=== PATIENT | female | born 1995 ===

== ENCOUNTER 2025-03-06 16:00 | Emergency (ER) | payer OTHER, SELFPAY ==
[2025-03-06 16:30] VITALS: BP 125/67; PULSE 84; RESP 20; TEMP 36.6; O2SAT 98; BMI 21.4
--- NOTE | 2025-03-06 16:37 | DI.MRI.S_ITS ---
PROCEDURE: MR PELVIS WO CON INDICATIONS: RLQ mass/+preg, concern ectopic, ? US at [facility] TECHNIQUE: Noncontrast coronal, axial, and sagittal HASTE, axial HASTE with fat saturation, axial 2-D FLASH in- and [id number], axial 2-D time of flight, axial diffusion and ADC from the kidneys to the symphysis. COMPARISON: [facility], US, US OB <= 14 WEEKS FETUS, 03/06/2025, 16:55. FINDINGS: Image quality: Excellent. Bowel: Visualized small and large bowel loops are normal in caliber. The appendix is seen originating from the cecum and measures 0.5 cm in diameter, (13/5). Genitourinary system: Kidneys are normal in size. Bladder wall thickness is normal. Uterus and ovaries: Anteverted uterus. Endometrial contents measure 13 mm in diameter. No pole is identified. Cervix is unremarkable. Small volume of free fluid in the pelvis. Right ovarian cyst measuring 1.7 cm, (12/15). Thickened cyst wall. Asymmetric dilated tubular structure at the left adnexa measuring 1.3 cm in diameter, (13/6). Soft tissues: No ventral or inguinal hernias. Bones: Marrow has normal overall signal. IMPRESSION: 1. Right adnexa dilated tubular structure measuring 1.3 cm in diameter. This is most consistent with hydrosalpinx. Difficult to exclude tubal ectopic . 2. Right ovarian cyst with a thickened wall measuring 1.7 cm. Differential diagnosis includes corpus luteum, ectopic , heterotopic . 3. of uncertain location. Small volume of free fluid in the pelvis. 4. The appendix appears normal. Recommend gynecological consultation. Recommend trending beta hCG. Short-term follow-up pelvic ultrasound would be helpful. Comment: Findings were discussed with Sanam Velazquez at time of dictation. Dictated by: Familia Beltrán M.D. on 03/06/2025 at 18:54 Approved by: Familia Beltrán M.D. on 03/06/2025 at 19:17
--- NOTE | 2025-03-06 16:37 | DI.US.S_ITS ---
PROCEDURE: US OB <= 14 WEEKS FETUS INDICATIONS: r/o ectopc, ?US [facility] +mass R/+preg hcg 120 OUTSIDE/PRIOR DATING DATA: Last menstrual period (LMP): 01/28/2025 LMP-based estimated date of delivery (ELLY): 11/04/2025 TECHNIQUE: Real-time scanning was performed of the fetus and maternal pelvic organs, with image documentation. Endovaginal scanning was also performed to better visualize the fetus and maternal ovaries. COMPARISON: [facility], MR, MR PELVIS WO CON, 03/06/2025, 17:49. FINDINGS: No intrauterine fluid collection or gestational sac. A tubular structure is seen in the right adnexa measuring up to 12 mm in diameter, possibly bowel. Ovaries are normal in size and symmetric. Small amount of free fluid in the pelvic cul-de-sac. IMPRESSION: 1. of unknown location. No definite intrauterine or ectopic is seen. Differential includes normal early , ectopic , or and early loss. 2. Tubular bowel structure in the right adnexa, possibly a prominent loop of small bowel though a dilated appendix is not excluded. Approved by: Carlos Alberto Sage M.D. on 03/06/2025 at 18:48
--- NOTE | 2025-03-06 16:40 | ED.PREGNANCY ---
HPI - <Sanam Velazquez DO - Last Filed: 03/07/25 08:47> General Chief complaint: OB/Uterine Contractions Stated complaint: sent from [facility] in [place]- needs OBGYN Time Seen by Provider: 03/06/25 16:11 Source: patient Mode of arrival: Ambulatory Limitations: no limitations History of Present Illness HPI Narrative: 29-year-old female , patient's last menstrual period was 01/29/2020, developed some right lower quadrant discomfort today. Had evaluation at [facility] was found to have an hCG of 120 she notes positive test on Tuesday. Patient states had ultrasound today was sent from [facility] because of concern for ectopic versus other no intra uterine was seen but there was an abnormal hypervascular tubular structure in the right adnexa ultrasound was read as ectopic versus abnormal appendix versus inflamed bowel loop. Patient notes some spotting after her ultrasound. She states pain is improved after Tylenol. No fevers. No chest pain or shortness of breath, no nausea or vomiting no other GI or urinary symptoms other than some mild constipation. Patient states no prior surgeries. No daily medications. No known drug allergies. No tobacco, no regular alcohol, no recreational drugs. She lives in [place]. Related Data Allergies Allergy/AdvReac Type Severity Reaction Status Date / Time No Known Allergies Allergy Mild Verified 03/06/25 16:31 Review of Systems <Sanam Velazquez - Last Filed: 03/07/25 08:47> Review of Systems ROS Unobtainable: All systems reviewed & are unremarkable except as noted in HPI and below Exam <Sanam Velazquez - Last Filed: 03/07/25 08:47> Narrative Exam Narrative: GENERAL: Alert and oriented x three, female in mild distress HEENT: Head normocephalic, atraumatic, EOMI, pupils reactive, face symmetric, moist mucous membranes NECK: Supple, full range of motion CARDIOVASCULAR: Regular rate and rhythm without murmurs, rubs or gallops. RESPIRATORY: Breath sounds equal bilaterally, no wheezes rales or rhonchi. ABDOMEN: Soft, mild right lower quadrant tenderness. Normoactive bowel sounds all 4 quadrants. No guarding or rebound, rigidity, no mass : No CVA tenderness EXTREMITIES: Normal range of motion, no clubbing or edema. Neurovascularly intact NEUROLOGICAL: Cranial nerves II through XII grossly intact. Moving all extremities SKIN: Warm, dry, no petechiae, no rashes or lesions. Initial Vital Signs Initial Vital Signs: Vital Signs Temperature 98 F 03/06/25 16:30 Pulse Rate 84 03/06/25 16:30 Respiratory Rate 20 03/06/25 16:30 Blood Pressure 125/67 03/06/25 16:30 Pulse Oximetry 98 03/06/25 16:30 Oxygen Delivery Method Room Air 03/06/25 16:30 <Jadon Thomas MD - Last Filed: 03/07/25 05:28> Initial Vital Signs Initial Vital Signs: Vital Signs Temperature 98 F 03/06/25 16:30 Pulse Rate 84 03/06/25 16:30 Respiratory Rate 20 03/06/25 16:30 Blood Pressure 125/67 03/06/25 16:30 Pulse Oximetry 98 03/06/25 16:30 Oxygen Delivery Method Room Air 03/06/25 16:30 Course <Sanam Velazquez DO - Last Filed: 03/07/25 08:47> Orders Ordered: Discontinued Medications Sodium Chloride (Normal Saline 0.9%) 1,000 mls @ 250 mls/hr IV CONT SHERYL Last Infusion: 03/06/25 20:01 Dose: Infused Documented By: Admin: 03/06/25 17:33 Dose: 250 mls/hr Documented By: MPO Vital Signs Vital signs: Vital Signs - 8 hr 03/06/25 16:30 Temperature 98 F Pulse Rate 84 Respiratory Rate 20 Blood Pressure 125/67 Pulse Oximetry 98 Oxygen Delivery Method Room Air <Jadon Thomas MD - Last Filed: 03/07/25 05:28> Orders Ordered: Discontinued Medications Sodium Chloride (Normal Saline 0.9%) 1,000 mls @ 250 mls/hr IV CONT SHERYL Last Infusion: 03/06/25 20:01 Dose: Infused Documented By: Admin: 03/06/25 17:33 Dose: 250 mls/hr Documented By: MPO Vital Signs Vital signs: Vital Signs - 8 hr 03/06/25 16:30 Temperature 98 F Pulse Rate 84 Respiratory Rate 20 Blood Pressure 125/67 Pulse Oximetry 98 Oxygen Delivery Method Room Air MDM - OB/Uterine Contractions <Sanam Velazquez DO - Last Filed: 03/07/25 08:47> Lab Data 03/06/25 16:39 Labs: Lab Results 03/06/25 03/06/25 Range/Units 16:39 16:45 WBC 9.6 (4.5-11.0) X10^3/uL RBC 4.54 (4.0-5.2) X10^6/uL Hgb 13.0 (12.0-16.0) g/dL Hct 38.1 (36-46) % MCV 84.1 (80-100) fL MCH 28.6 (26-34) PG MCHC 34.0 (30-36) % RDW 13.5 (11.6-14.8) % Plt Count 244 (150-400) X10^3/uL Neut % (Auto) 68.1 (50-75) % Lymph % (Auto) 27.7 (25-40) % [place] % (Auto) 3.8 (3-14) % Eos % (Auto) 0.0 L (2-4) % Baso % (Auto) 0.4 (0-2) % Neut # (Auto) 6500 (5226-1378) /uL Lymph # (Auto) 2700 (3064-7897) /uL [place] # (Auto) 400 (0-900) /uL Eos # (Auto) 0 (0-450) /uL Baso # (Auto) 0 (0-100) /uL Progesterone 5.68 ng/mL Blood Type O Positive Antibody Screen Negative MDM Narrative Medical decision making narrative: Labs and imaging reports were reviewed from outside facility patient's hemoglobin was 13, quantitative hCG was 120, vaginal ultrasound shows large vascular tubular structure adjacent to the right ovary concerning for ectopic. Patient is Rh status is pending and unavailable we will recent here. We will also recent a CBC as patient is slightly tachycardic upon arrival in the 1 teens to 100 range. There was discussion about pelvic MR without contrast to evaluate but did speak with Dr. Parks prior to patient's arrival unable to obtain MRI until 6pm or 630pm we will obtain ultrasound in the meantime to see if any new changes or free fluid. Spoke with Dr. Flor @ [phone] and she will be down to see patient. Repeat hemoglobin here is 13, consistent with prior at outside facility. O positive with negative antibody screen. Prelim for OB ultrasound possible ectopic versus appendicitis. Formal report is pending. Dr. Flor in the department to evaluate patient. She reviewed the ultrasound images agrees with the plan for pelvic MR. She did ask for a progesterone level to be added on. Patient signed out to while awaiting Pelvic MR report. <Jadon Thomas MD - Last Filed: 03/07/25 05:28> Lab Data Labs: Lab Results 03/06/25 03/06/25 Range/Units 16:39 16:45 WBC 9.6 (4.5-11.0) X10^3/uL RBC 4.54 (4.0-5.2) X10^6/uL Hgb 13.0 (12.0-16.0) g/dL Hct 38.1 (36-46) % MCV 84.1 (80-100) fL MCH 28.6 (26-34) PG MCHC 34.0 (30-36) % RDW 13.5 (11.6-14.8) % Plt Count 244 (150-400) X10^3/uL Neut % (Auto) 68.1 (50-75) % Lymph % (Auto) 27.7 (25-40) % [place] % (Auto) 3.8 (3-14) % Eos % (Auto) 0.0 L (2-4) % Baso % (Auto) 0.4 (0-2) % Neut # (Auto) 6500 (2389-0683) /uL Lymph # (Auto) 2700 (6309-9799) /uL [place] # (Auto) 400 (0-900) /uL Eos # (Auto) 0 (0-450) /uL Baso # (Auto) 0 (0-100) /uL Progesterone 5.68 ng/mL Blood Type O Positive Antibody Screen Negative Imaging Data MRI pelvis: Radiologist's Impression: [address] [address] Magnetic Resonance Report Signed Patient: Juanita King MR#: [id number] : 1995 Acct:[id number] Age/Sex: 29 / F Date of Service: 03/06/25 Loc: ED Accession Number: [id number] Procedure: MR pelvis wo con Ordering Provider: Sanam Velazquez D.O. PROCEDURE: MR PELVIS WO CON INDICATIONS: RLQ mass/+preg, concern ectopic, ? US [place] [facility] TECHNIQUE: Noncontrast coronal, axial, and sagittal HASTE, axial HASTE with fat saturation, axial 2-D FLASH in- and [id number], axial 2-D time of flight, axial diffusion and ADC from the kidneys to the symphysis. COMPARISON: [facility], US, US OB <= 14 WEEKS FETUS, 03/06/2025, 16:55. FINDINGS: Image quality: Excellent. Bowel: Visualized small and large bowel loops are normal in caliber. The appendix is seen originating from the cecum and measures 0.5 cm in diameter, (13/5). Genitourinary system: Kidneys are normal in size. Bladder wall thickness is normal. Uterus and ovaries: Anteverted uterus. Endometrial contents measure 13 mm in diameter. No pole is identified. Cervix is unremarkable. Small volume of free fluid in the pelvis. Right ovarian cyst measuring 1.7 cm, (12/15). Thickened cyst wall. Asymmetric dilated tubular structure at the left adnexa measuring 1.3 cm in diameter, (13/6). Soft tissues: No ventral or inguinal hernias. Bones: Marrow has normal overall signal. IMPRESSION: 1. Right adnexa dilated tubular structure measuring 1.3 cm in diameter. This is most consistent with hydrosalpinx. Difficult to exclude tubal ectopic . 2. Right ovarian cyst with a thickened wall measuring 1.7 cm. Differential diagnosis includes corpus luteum, ectopic , heterotopic . 3. of uncertain location. Small volume of free fluid in the pelvis. 4. The appendix appears normal. Recommend gynecological consultation. Recommend trending beta hCG. Short-term follow-up pelvic ultrasound would be helpful. Comment: Findings were discussed with Sanam Velazquez at time of dictation. Dictated by: Familia Beltrán M.D. on 03/06/2025 at 18:54 Approved by: Familia Beltrán M.D. on 03/06/2025 at 19:17 MDM Narrative Medical decision making narrative: Labs and imaging reports were reviewed from outside facility patient's hemoglobin was 13, quantitative hCG was 120, vaginal ultrasound shows large vascular tubular structure adjacent to the right ovary concerning for ectopic. Patient is Rh status is pending and unavailable we will recent here. We will also recent a CBC as patient is slightly tachycardic upon arrival in the 1 teens to 100 range. There was discussion about pelvic MR without contrast to evaluate but did speak with Dr. Parks prior to patient's arrival unable to obtain MRI until 6pm or 630pm we will obtain ultrasound in the meantime to see if any new changes or free fluid. Spoke with Dr. Flor @ [phone] and she will be down to see patient. Repeat hemoglobin here is 13, consistent with prior at outside facility. O positive with negative antibody screen. Prelim for OB ultrasound possible ectopic versus appendicitis. Formal report is pending. Dr. Flor in the department to evaluate patient. She reviewed the ultrasound images agrees with the plan for pelvic MR. She did ask for a progesterone level to be added on. Patient signed out to while awaiting Pelvic MR report. 03/06/251929, William. Sign-out from Dr. Velazquez. 29-year-old primigravida seen Tuesday for abdominal discomfort, ultrasound suspicious for adnexal mass structure, serum test 120 low but measurable, possible ectopic versus some other process. No ongoing external vaginal bleeding. Afebrile, sirs screen negative. Hemoglobin 13. Chart reviewed, Ob Gynecology Dr. Flor has seen patient, aware of MRI results, is here in the emergency department seeing the patient for disposition plan. Ultrasound pelvis done here. Impressions: ? of unknown location. No definite intrauterine or ectopic is seen. Differential includes normal early , ectopic , or and early loss. 2. Tubular bowel structure in the right adnexa, possibly a prominent loop of small bowel though a dilated appendix is not excluded. See radiology report. MRI pelvis study results. Impressions: ?1. Right adnexa dilated tubular structure measuring 1.3 cm in diameter. This is most consistent with hydrosalpinx. Difficult to exclude tubal ectopic . 2. Right ovarian cyst with a thickened wall measuring 1.7 cm. Differential diagnosis includes corpus luteum, ectopic , heterotopic . 3. of uncertain location. Small volume of free fluid in the pelvis. 4. The appendix appears normal. Recommend gynecological consultation. Recommend trending beta hCG. Short-term follow-up pelvic ultrasound would be helpful.. See radiology report. Dr. Flor here discussing results and diagnosis and follow up plan with patient. I provided printed copies of her ultrasound on her MRI pelvis results. Patient confirmed understanding of follow up plan this Tuesday with Dr. Flor. Advised follow up with her in clinic on Tuesday for likely repeat blood testing and repeat ultrasound imaging at that time. She lives in [place] on [address] [address] [facility], and we will stay in local motel next couple of days until follow up appointment as above. Return precautions discussed. Discharged home with family. Discharge Plan Departure Patient Disposition: Home Clinical Impression: Pelvic pain Activity Restrictions/Additional Instructions: Pelvic pain with concern for possible ectopic versus some other process. Imaging studies ultrasound and MRI performed, with bedside consultation binding cutter on-call Dr. Josh Parks. She reviewed studies and made recommendations. Outpatient evaluation for now. She would like to see you in her office on Tuesday for further evaluation with blood testing and ultrasound repeat studies at that time. Return to this/nearest emergency department for any change worsening symptoms or any concerns prior to that visit. Referrals: Lidia Flor DO [Physician, Gynecology] Stand Alone Forms: Patient Portal/API
[2025-03-06 17:02] LABS: Add Manual Diff / Slide Review NO; Hematocrit 38.1 % (36-46); Hemoglobin 13.0 g/dL (12.0-16.0); Lymphocytes Absolute Auto 2700 /uL (1100-4500); Mean Corpuscular HGB Conc 34.0 % (30-36); Mean Corpuscular Hemoglobin 28.6 PG (26-34); Mean Corpuscular Volume 84.1 fL (80-100); Platelet Count 244 X10^3/uL (150-400)
[2025-03-06] MEDS: SODIUM CHLORIDE 0.9% 1,000 ML 250 ML IV (17:33)
[2025-03-06 19:04] LABS: Progesterone, Total 5.68 ng/mL
[2025-03-06 20:03] VITALS: BP 117/75; PULSE 91; TEMP 36.9; O2SAT 98
--- NOTE | 2025-03-06 20:05 | PM.CN.IH.1 ---
History of Present Illness Consult details Date Patient Seen: 03/06/25 Time Patient Seen: 18:00 Chief complaint: sent from [facility] in Tue [place]- needs OBGYN Reason for consult: Concern for ectopic Requesting provider: Sanam Velazquez Narrative: Patient is a 29yo G1 LMP- 01/28/25 presents to ER at [facility] for evaluation for concern for ectopic . Patient reports + UPT at home on Tuesday and was doing well. Today while she was at work she started having right lower quadrant pain that was severe and sharp and was unable to continue working due to the pain. she denies any vaginal bleeding. reports mild breast tenderness and nausea. She went to [facility] [place] she had a pelvic US done with an inconclusive result-- no IUP, thickened EMS, right corpus luteum and normal left ovary. There is a tubular structure that bends posteriorly toward the cul de sac. possible differential included ectopic, miscarriage, appendicitis. hcg 121, Hgb 13, vital signs stable there was some old appearing blood on the vaginal probe when US completed. Paitent instructed to come to [facility] for MRI and more definitive imaging. patient received 1000mg tylenol while a [facility] and currentlt her pain is resolved. Denies any dizziness/lightheadedness and feels well. repeat CBC here- 13 repeat pelvic US was done-- i reviewed images with the tech-- he was unable to determine the origin of the tubular structure posteriorly and there was concern for appendicitis. MRI completed-- no IUP seen, thickened EMS, normla left ovary, normal right ovary with CL cyst, there is a tubular structure that appears consistent with a right hydrosalpinx, unable to rule out ectopic. mild free fliud in the pelvis normal appendix seen. reviewed patient history. first . denies any abdominal surgeries in the past. no hsitory of STIs non smoker of note- patient does have a history of very painful menses- possible endometriosis? Meds Home Medications and Allergies Allergies Allergy/AdvReac Type Severity Reaction Status Date / Time No Known Allergies Allergy Mild Verified 03/06/25 16:31 Exam Vital Signs (past 8 hours): - 03/06/25 16:30 03/06/25 20:03 Temperature 98 F 98.4 F Pulse Rate 84 91 H Respiratory Rate 20 Blood Pressure 125/67 117/75 Pulse Oximetry 98 98 Oxygen Delivery Method Room Air Room Air Oxygen Delivery Method Room Air Narrative Exam Narrative: GEN- AAO x 3, NAD, resting comfortably abdomen- slight tenderness to deep palpation on the right side, no rebound or guarding. no distension. negative peritoneal signs. Objective Labs 03/06/25 16:39 Labs: Laboratory Results - last 24 hr 03/06/25 03/06/25 16:39 16:45 WBC 9.6 RBC 4.54 Hgb 13.0 Hct 38.1 MCV 84.1 MCH 28.6 MCHC 34.0 RDW 13.5 Plt Count 244 Neut % (Auto) 68.1 Lymph % (Auto) 27.7 [place] % (Auto) 3.8 Eos % (Auto) 0.0 L Baso % (Auto) 0.4 Neut # (Auto) 6500 Lymph # (Auto) 2700 [place] # (Auto) 400 Eos # (Auto) 0 Baso # (Auto) 0 Progesterone 5.68 Blood Type O Positive Antibody Screen Negative [facility] Tobacco & Substance Use Smoking Status: Never smoker Assessment & Plan Assessment and plan (1) Pelvic pain: Status: Acute (2) of unknown anatomic location: Status: Acute Plan New with LMP- 01/28/25. 5w2d by LMP. Patient with imaging findings concerning for possible ectopic but not definitive presented with RLQ pain-- currently resolved with tylenol but mild tenderness on deep palpation, otherwise benign abdominal exam Findings suspicious for ectopic include-- MRI- right hydrosalpinx, no IUP, normal appendix, mild free fluid--- no definitive ectopic seen reassuring findings include a thickened and bright EMS c/w early implantation, hcg 121-- reassuring factors include- Hgb 13, pain resolved with tylenol, hemodynamically stable Patient reports a history of painful menses-- she may have endometriosis which contributed to the hydrosalpinx-- this would increase her risk of ectopic. considering the low hcg and early with no definitive ectopic and hemodynamically stable patient with good support and reliable for follow up-- we discussed the option for close follow up with a repeat hcg in 48hrs and repeat pelvic US Patient lives on Tuesday-- do not recommend returning to the [place] remote from a hospital at this time due to uncertainty of diagnosis. patient here with her and agrees to stay in a hotel in [place] for the next 2 nights. if rising appropriately, US stable and pain resolved then would consider further monitoring from the [place]. we discussed that if the hcg plateaus or declining then will recommend to proceed with surgical removal of right hydrosalpinx and suspected ectopic . we discussed that if an IUP is confirmed and she has persistent pain in the future she may require removal of the hydrosalpinx at some point either or in preferrably in the 2nd tri if pain is severe enough to require intervention. discuss this plan with patient and partner. We discussed the nature of ectopic pregnancies and the reasoning to repeat hcg and US to confirm diagnosis prior to proceed to surgery at this time but with the clear review of reasons to return to the hospital and stay close to the hospital for the next 2 days. Patient and partner understand. reasons to return to ER-- worsening pain, dizziness, lightheadedness, vaginal bleeding. Rh positive- rhogam not indicated return to [facility] on thursday 03/08 for hcg and pelvic US Time-Based Coding :: [TOTAL MINUTES] spent with patient and on the chart (including review of chart, obtaining history, exam, reviewing outside data, placing orders, documenting exam and treatment plan, and counseling patient) on [DATE]. PROFEE Charge Codes Inpatient or Observation consultation: 23381
== END 2025-03-06 20:04 | disposition home or self-care (01) ==
PROVIDERS: Emergency Provider Emergency Medicine
DX: O36.80X0 Pregnancy with inconclusive fetal viability, not applicable or unspecified (principal); R10.2 Pelvic and perineal pain
CPT/HCPCS: 36415; 72195; 76801; 76817; 84144; 85025; 86850; 86900; 86901; 96360; 96361; 99283; 99284

== ENCOUNTER → 2025-03-08 08:02 | Outpatient (CLI) | payer OTHER, SELFPAY ==
[2025-03-08 08:40] LABS: Add Manual Diff / Slide Review NO; Hematocrit 38.0 % (36-46); Hemoglobin 13.0 g/dL (12.0-16.0); Lymphocytes Absolute Auto 2300 /uL (1100-4500); Mean Corpuscular HGB Conc 34.1 % (30-36); Mean Corpuscular Hemoglobin 28.5 PG (26-34); Mean Corpuscular Volume 83.5 fL (80-100); Platelet Count 240 X10^3/uL (150-400)
[2025-03-08 09:25] LABS: HCG Quantitative /Beta subunit 346.95 mIU/mL
[2025-03-08 09:26] LABS: Progesterone, Total 9.77 ng/mL
== END ==
PROVIDERS: PCP Student in an Organized Health Care Education/Training Program; Referring Provider Obstetrics & Gynecology; Visit Provider Obstetrics & Gynecology
DX: O36.80X0 Pregnancy with inconclusive fetal viability, not applicable or unspecified (principal); R10.2 Pelvic and perineal pain
CPT/HCPCS: 36415; 84144; 84702; 85025

== ENCOUNTER → 2025-03-11 08:19 | Outpatient (CLI) | payer OTHER, SELFPAY ==
[2025-03-11 09:48] LABS: HCG Quantitative /Beta subunit 173.02 mIU/mL
== END ==
PROVIDERS: PCP Student in an Organized Health Care Education/Training Program; Referring Provider Obstetrics & Gynecology; Visit Provider Obstetrics & Gynecology
DX: O36.80X0 Pregnancy with inconclusive fetal viability, not applicable or unspecified (principal)
CPT/HCPCS: 36415; 84702

== ENCOUNTER → 2025-03-12 10:10 | Outpatient (CLI) | payer OTHER, SELFPAY ==
[2025-03-12 10:49] LABS: Add Manual Diff / Slide Review NO; Hematocrit 38.0 % (36-46); Hemoglobin 12.9 g/dL (12.0-16.0); Lymphocytes Absolute Auto 2200 /uL (1100-4500); Mean Corpuscular HGB Conc 33.9 % (30-36); Mean Corpuscular Hemoglobin 28.1 PG (26-34); Mean Corpuscular Volume 83.0 fL (80-100); Platelet Count 256 X10^3/uL (150-400)
[2025-03-12 11:28] LABS: Alanine Aminotransferase 15 IU/L (<35); Albumin 4.3 g/dL (3.5-5.0); Albumin Globulin Ratio 1.5 (1.0-2.8); Alkaline Phosphatase 46 U/L (38-126); Blood Urea Nitrogen 12 mg/dL (7-17); Calcium 9.4 mg/dL (8.4-10.2); Carbon Dioxide 24 mmol/L (22-32); Chloride 104 mmol/L (98-107); Estimated Glomerular Filt Rate > 60 mL/min (>60); Globulin 2.8 g/dL (1.7-4.1); Glucose 132 mg/dL (70-99); HEMOLYSIS < 15 (0-50); Potassium 3.7 mmol/L (3.4-5.1); Sodium 137 mmol/L (137-145); Total Protein 7.1 g/dL (6.3-8.2)
[2025-03-12 11:45] LABS: HCG Quantitative /Beta subunit 110.69 mIU/mL
== END ==
PROVIDERS: PCP Student in an Organized Health Care Education/Training Program; Referring Provider Student in an Organized Health Care Education/Training Program; Visit Provider Obstetrics & Gynecology
DX: O36.80X0 Pregnancy with inconclusive fetal viability, not applicable or unspecified (principal)
CPT/HCPCS: 36415; 80053; 84702; 85025

== ENCOUNTER → 2025-03-13 07:43 | Outpatient (CLI) | payer OTHER, SELFPAY ==
[2025-03-13 08:46] LABS: HCG Quantitative /Beta subunit 76.63 mIU/mL
== END ==
PROVIDERS: PCP Student in an Organized Health Care Education/Training Program; Referring Provider Obstetrics & Gynecology; Visit Provider Obstetrics & Gynecology
DX: O36.80X0 Pregnancy with inconclusive fetal viability, not applicable or unspecified (principal)
CPT/HCPCS: 36415; 84702

== ENCOUNTER → 2025-03-13 07:48 | Outpatient (CLI) | payer OTHER, SELFPAY ==
--- NOTE | 2025-03-13 07:49 | DI.US.S_ITS ---
PROCEDURE: US PELVIC COMPLETE INDICATIONS: rule out ectopic TECHNIQUE: Real-time scanning was performed of the pelvic organs, with image documentation. Additional endovaginal scanning was necessary due to incomplete visualization of the adnexal and endometrial structures by transabdominal scanning. COMPARISON: [facility], MR, MR PELVIS WO CON, 03/06/2025, 17:49. FINDINGS: Uterus: Uterus is anteverted and normal in size at 9.7 x 4.2 x 4.8 cm. The myometrium is homogeneous. The endometrium measures 7.6 mm combined thickness. Ovaries: The right ovary measures 2.1 x 2.8 x 2.0 cm, with a calculated ovarian volume of 6.1 cc. The left ovary measures 2.3 x 1.0 x 1.9 cm, with a calculated ovarian volume of 2.4 cc. A right ovarian thick-walled cyst is seen measuring 1.8 x 1.1 x 1.1 cm, likely a corpus luteal cyst. Additional heterogeneous mildly echogenic lesion is seen in the right adnexa separate from the ovary measuring 1.7 x 1.2 x 1.4 cm without significant internal vascularity seen. Other: Small volume of free fluid is seen in the pelvis with low level internal echoes. IMPRESSION: 1. Possible right adnexal ectopic . Heterogeneous 1.7 cm oval structure is seen in the right adnexa separate from the ovary without definite internal vascularity. No intrauterine . Recommend correlation with clinical findings and beta HCG measurements as well as follow-up ultrasound as needed. 2. Probable right ovarian corpus luteal cyst measuring 1.8 cm. 3. Small amount of complex fluid in the pelvis suspicious for a small amount of hemoperitoneum. Approved by: Carlos Alberto Sage M.D. on 03/13/2025 at 10:31
== END ==
LOC: US 07:49
PROVIDERS: PCP Student in an Organized Health Care Education/Training Program; Referring Provider Obstetrics & Gynecology; Visit Provider Obstetrics & Gynecology
DX: O36.80X0 Pregnancy with inconclusive fetal viability, not applicable or unspecified (principal)
CPT/HCPCS: 36415; 76830; 76856; 84702

== ENCOUNTER → 2025-03-14 08:04 | Outpatient (CLI) | payer OTHER, SELFPAY ==
[2025-03-14 10:11] LABS: HCG Quantitative /Beta subunit 47.45 mIU/mL
== END ==
PROVIDERS: PCP Student in an Organized Health Care Education/Training Program; Referring Provider Student in an Organized Health Care Education/Training Program; Visit Provider Obstetrics & Gynecology
DX: O36.80X0 Pregnancy with inconclusive fetal viability, not applicable or unspecified (principal)
CPT/HCPCS: 36415; 84702

== ENCOUNTER → 2025-03-15 08:16 | Outpatient (CLI) | payer OTHER, SELFPAY ==
[2025-03-15 09:24] LABS: HCG Quantitative /Beta subunit 36.52 mIU/mL
== END ==
PROVIDERS: PCP Student in an Organized Health Care Education/Training Program; Referring Provider Obstetrics & Gynecology; Visit Provider Obstetrics & Gynecology
DX: O36.80X0 Pregnancy with inconclusive fetal viability, not applicable or unspecified (principal)
CPT/HCPCS: 36415; 84702

== ENCOUNTER → 2025-03-18 08:15 | Outpatient (CLI) | payer OTHER, SELFPAY ==
[2025-03-18 09:51] LABS: HCG Quantitative /Beta subunit 14.59 mIU/mL
== END ==
PROVIDERS: PCP Student in an Organized Health Care Education/Training Program; Referring Provider Obstetrics & Gynecology; Visit Provider Obstetrics & Gynecology
DX: O36.80X0 Pregnancy with inconclusive fetal viability, not applicable or unspecified (principal)
CPT/HCPCS: 36415; 84702